=== PATIENT | female | born 1990 | race Caucasian/White ===

== ENCOUNTER 2025-07-20 23:08 | Emergency (ER) | payer MEDICAID ==
[~2025-07-20] VITALS: Ht 160 cm; Wt 54.5 kg
[2025-07-21 00:45] LABS: PLATELET COUNT (AUTO) 199 K/uL (150-450); RED BLOOD CELL COUNT(AUTO) 4.84 MIL/uL (4.00-5.20); RED CELL DISTRIBUTION WIDTH 14.1 % (11.5-14.5); WHITE BLOOD COUNT (AUTO) 10.9 K/uL (4.5-11.0)
[2025-07-21 00:47] LABS: CALCIUM, TOTAL 8.4 mg/dL (8.8-10.5); CREATININE 0.63 mg/dL (0.60-1.30); GLOMERULAR FILTR. RATE CALC > 60 mL/min (>60); GLUCOSE,RANDOM 99 mg/dL (70-110); SODIUM SERUM 143 mmol/L (136-145); UREA NITROGEN, BLOOD 5 mg/dL (7-18)
[2025-07-21 00:58] LABS: ALCOHOL, BLOOD (SERUM) 56 mg/dL (0-10); HCG,QUANTITATIVE 1 mIU/mL (0-6)
[2025-07-21] MEDS: SODIUM CHLORIDE 0.9% 1,000 ML IV ONE (01:01)
[2025-07-21 04:03] VITALS: BP 127/68; PULSE 79; RESP 20; TEMP 97.3; O2SAT 98
== END 2025-07-21 04:43 | disposition home or self-care (01) ==
LOC: EMS 23:10
DX: F10.229 Alcohol dependence with intoxication, unspecified (principal); N89.8 Other specified noninflammatory disorders of vagina; Y90.2 Blood alcohol level of 40-59 mg/100 ml
CPT/HCPCS: 99284; 80048; 84702; 85025; 36415; 96360; 96361; 93005; G0480; J7030